=== PATIENT | female | born 1985 | race Caucasian/White ===

== ENCOUNTER → 2023-12-18 07:59 | Day surgery (SDC) | payer OTHER, SELFPAY | LOC: GI 07:59 | PROVIDERS: ATTENDING PHYSICIAN Internal Medicine Gastroenterology | DX: K29.50 Unspecified chronic gastritis without bleeding (principal); B96.81 Helicobacter pylori [H. pylori] as the cause of diseases classified elsewhere; K22.89 Other specified disease of esophagus; K31.89 Other diseases of stomach and duodenum; R10.13 Epigastric pain; R19.7 Diarrhea, unspecified | CPT/HCPCS: 43239; 88305; 87220; 88342 ==

== ENCOUNTER → 2024-06-25 09:09 | Outpatient (REF) | payer OTHER, SELFPAY | LOC: HWRAD 09:09 | PROVIDERS: ATTENDING PHYSICIAN Nurse Practitioner Obstetrics & Gynecology; FAMILY PHYSICIAN Family Medicine | DX: F52.6 Dyspareunia not due to a substance or known physiological condition (principal) | CPT/HCPCS: 76830; 76856 ==

== ENCOUNTER → 2024-08-01 14:29 | Outpatient (REF) | payer OTHER, SELFPAY | LOC: HWRAD 14:29 | PROVIDERS: ATTENDING PHYSICIAN Family Medicine | DX: E04.1 Nontoxic single thyroid nodule (principal) | CPT/HCPCS: 76536 ==

== ENCOUNTER → 2024-08-26 09:30 | Outpatient (REF) | payer OTHER, SELFPAY | LOC: RCS 09:30 | PROVIDERS: ATTENDING PHYSICIAN Family Medicine | DX: R00.0 Tachycardia, unspecified (principal) | CPT/HCPCS: 93225; 93226 ==

== ENCOUNTER 2024-11-29 14:52 | Emergency (ER) | payer OTHER, SELFPAY ==
[2024-11-29 15:01] VITALS: BP 132/87
[2024-11-29 15:20] LABS: % Basophils 0.6 % (0-2); % Eosinophils 0.4 % (0-6); % Immature Granulocytes 0.3 % (0-0.5); % Lymphocytes 21.7 % (20.5-51.1); Absolute Lymphocytes 1.5 10^3/uL (1.2-3.4); Absolute Monocytes 0.3 10^3/uL (0.1-0.6); Absolute Neutrophils 4.9 10^3/uL (1.4-6.5); Hematocrit 39.7 % (37.0-47.0); Hemoglobin 13.2 g/dL (12.0-16.0); Mean Corp Hgb Conc. 33.2 g/dL (33.0-37.0); Mean Corpuscular Hgb 29.2 pg (27.0-31.0); Mean Corpuscular Volume 87.8 fL (81.0-99.0); Nucleated Red Blood Cells % 0 %; Platelet Count 181 10^3/uL (130-400); Red Blood Cell Count 4.52 10^6/uL (4.20-5.40); Red Cell Dist. Width 12.1 % (11.5-14.5); White Blood Cell Count 6.8 10^3/uL (4.8-10.8)
[2024-11-29 15:41] LABS: ALT (SGPT) 18 U/L (0-35); AST (SGOT) 22 U/L (14-36); Albumin 5.3 g/dl (3.5-5.0); Alkaline Phosphatase 44 U/L (38-126); Blood Urea Nitrogen 16 mg/dl (7-17); Calcium 9.2 mg/dl (8.4-10.2); Carbon Dioxide 24 mmol/L (22-30); Chloride 101 mmol/L (98-107); Glucose 105 mg/dl (70-99); Sodium 138 mmol/L (135-145); Total Protein 8.6 g/dl (6.3-8.2); eGFR > 60.00
[2024-11-29 15:43] LABS: Troponin I < 0.012 ng/ml
[2024-11-29 18:36] LABS: TSH 1.51 uIU/ml (0.47-4.68)
[2024-11-29 21:42] VITALS: BP 122/74
--- NOTE | 2024-11-29 22:54 | ED.GENMED ---
History of Present Illness
General
Chief Complaint: Chest Pain
Source: patient, previous radiology exam (Previous Holter monitor July 2024 showing normal sinus rhythm with occasional PACs/PVCs. Abdominal MRI June 2023 showing gallbladder sludge otherwise unremarkable. Performed due to elevated
pancreatic enzymes) and previous hospital records (Upper endoscopy/colonoscopy November 2023.)
Time Seen by Provider: 11/29/24 22:03
Nursing documentation reviewed up to this point in time: agreed with
History of Present Illness
History of Present Illness:
This is a 39-year-old woman who presents to the ED with complaints of sharp substernal chest pain that began around 2 PM today, occasionally radiating to the left chest. No other accompanying symptoms with this sharp chest pain that seem to be
fleeting in nature, no shortness of breath, no cough, no nausea, no diaphoresis, no palpitations.
She does however note a multitude of various symptoms that have been intermittent over the past several weeks to perhaps months including 5-day history of dull epigastric pressure, discomfort and occasional loose stools that occur after meals.
Last night after lying down to bed she developed pounding sensation in her chest feeling that her heart was pounding hard but denies sensation that her heart was beating fast nor skipping beats. Pounding sensation persisted this morning but has
since resolved.
She has also had several week history of intermittent numbness of her left fourth and fifth digits most noted at nighttime and most noted when lying supine.
She has had no neck nor back pain, no headache.
She does admit to significant stress and admits to chronic worry about her health, worries that she will not be around to help care for her 11-year-old daughter. Worries about her mother who resides in [place], being treated for colon cancer.
Patient has been evaluated by GI and underwent unremarkable endoscopy and colonoscopy November 2023.
She underwent Holter monitor July 2024 showing normal sinus rhythm with occasional PACs/PVCs.
She takes no medicines on a daily basis.
She denies recent travel, no leg pain or swelling.
She had been treated with a short course of PPI as per GI perhaps for several months but then discontinued.
No previous treatment for anxiety/stress.
Patient states she called her PCP regarding her chest pain and was hoping to just have an EKG at the office but instead was sent to the ED for further evaluation.
Past History
Past History
ED Past Medical History: GERD (Gastritis) and Psychiatric (Generalized anxiety/stress/worry)
ED Past Surgical History: None
Social History
Tobacco: Smoker (Admits to rare cigarette smoking generally when she is stressed)
Alcohol: None
Drug: None
Personal: (Legally , continue to live together and patient states her is very supportive.)
Living: with family
Employment: Employed
Family History
Family History: Diabetes and Cancer (Colon cancer in mother as well as grandmother)
Phy Exam
Physical Exam
Physical Exam:
GENERAL: 39-year-old woman appears her stated age, awake and alert, pleasant, easily communicative and in no acute distress.
EYE: anicteric
NECK: Supple, nontender, no meningismus, no significant adenopathy.
ENT: oral mucosa is moist. No rhinorrhea.
CARDIAC: Regular rate and rhythm. no murmur. No rub. No palpable chest wall tenderness.
LUNGS: Clear breath sounds bilaterally, no acute respiratory distress, no wheezes/rales/rhonchi
ABDOMEN: Soft, nondistended, mild tenderness epigastric region, no r/g, no cvat. normoactive BS.
NEUROLOGICAL: Alert and oriented x3, no focal neuro deficits. Gait is steady.
SKIN: Warm and dry, normal color, skin intact. No rash.
MUSCULOSKELETAL: No C/C/E. peripheral pulses are full and equal b/l. No palpable tenderness.
PSYCH: Admits to moderate stress, worry about her health. Fair insight and judgment.
Scores
Heart Score for Chest Pain Patients
STEMI patient?: No
History: Slightly or Non-Suspicious
ECG: Normal
Age: </= 45 years
Risk Factors: No Risk Factors
Troponin: </= Normal Limit
Heart Score for Chest Pain Patients: 0
Heart Score Risk: 2.5% MACE over next 6 weeks
Course
Orders/Labs/Results
Orders:
Orders
11/29/24 14:54
Electrocardiogram (*1) Urgent
Reason for Study: Chest Pain
11/29/24 14:55
EKG- Treatment ONCE
11/29/24 15:11
Complete Blood Count/With Diff Urgent
Comprehensive Metabolic Panel Urgent
Lipase Urgent
Comment: ADD ON
TSH Urgent
Comment: ADD ON
Troponin I Urgent
11/29/24 17:22
Add On- LAB Urgent
Tests Added?: TSH
CR Chest - 2 Views Urgent
Comment:
Reason For Exam: CP
11/29/24 22:53
US Abdomen Complete/Upper Urgent
Comment:
Reason For Exam: 5 d hx intermittent upper abd pain, elevated bili
11/29/24 22:54
Crisis Consult Urgent
Reason for Consult: generalized anxiety--worry about health-worsening (she needs OP resources)
11/29/24 22:58
Add On- LAB Urgent
Tests Added?: lipase
Abnormal Lab Results
11/29/24
15:11
MPV 11.0 H fL
(7.4-10.4)
Glucose 105 H mg/dl
(70-99)
Total Bilirubin 2.0 H mg/dl
(0.2-1.3)
Total Protein 8.6 H g/dl
(6.3-8.2)
Albumin 5.3 H g/dl
(3.5-5.0)
Lipase 507 H U/L
(23-300)
11/29/24 15:11
11/29/24 15:11
Vital Signs
Initial and Last Documented VS:
Initial Vital Signs
Temp Pulse Resp BP Pulse Ox
98.2 F 102 20 132/87 97
11/29/24 15:01 11/29/24 15:01 11/29/24 15:01 11/29/24 15:01 11/29/24 15:01
Last Documented Vital Signs
Temp Pulse Resp BP Pulse Ox
98.2 F 67 16 116/74 99
11/29/24 15:01 11/30/24 00:17 11/30/24 00:17 11/30/24 00:17 11/30/24 00:17
MDM/Problems Addressed
Differential Diagnosis Includes:
Concern for GERD/gastritis, biliary colic, arrhythmia, thyroid disorder. ACS, thromboembolism are unlikely.
Labs thus far unremarkable save for mildly elevated bilirubin at 2.0.
Troponin is negative. With intermittent chest discomfort since 2 PM this afternoon, unremarkable EKG and normal troponin. ACS is unlikely.
TSH is normal.
Exam remarkable for mild tenderness epigastric region and with elevated bilirubin must consider biliary colic, pancreatitis.
Will check lipase.
Check abdominal ultrasound. A prior abdominal MRI June 2023 showed gallbladder sludge.
Patient does note moderate ongoing stress/anxiety/worry about her health.
We did discuss potential treatment options for this including outpatient counseling which she is readily agreeable to. Will consult crisis for evaluation and assistance with outpatient resources.
We also discussed option of starting an SSRI such as Lexapro.
She also noted intermittent paresthesia left fourth and fifth digits, intermittent over the past several weeks perhaps more than a month or 2 and only noted at nighttime when lying supine.
No focal neurodeficits.
Currently asymptomatic.
History and exam, I suspect ulnar neuropathy. Nothing to suggest central in origin nor cervical radiculopathy.
MDM/Problems Addressed:
Chest pain, epigastric discomfort, anxiety/worry, left fourth and fifth digit paresthesia.
*Radiology
Radiology exam reviewed: preliminary read by ED provider (Chest x-ray is unremarkable.) and radiology read reviewed (Abdominal ultrasound is unremarkable. Normal gallbladder.)
*Pulse Oximetry
Patient hypoxic: no
*EKG
Interpreted by ED Provider?: Yes
Interpretation: normal
Comparison EKG: no comparison EKG present
Rate: normal
Rhythm: sinus
[place]: normal axis
Interval: normal interval
QRS Pattern: normal QRS
Ischemia: no ischemia
*Critical Care Note
Total Time (30-74mins, 75-104mins- exclusive of procedures): Not Applicable
Update Note
Update Note:
Pt feeling improved after speaking with Benton Richards. Has been given OP resources for counseling.
Lipase mildly elevated
Abd US unremarkable.
Pt has hx of elevated pancreatic enzymes with unremarkable MRI abd save for GB sludge which is not identified today.
Acute gastritis, PUD may be contributing to mild elevation in lipase. overall appears comfortable and exam not consistent with acute pancreatitis.
Recommend bland diet, continue to avoid ETOH
Will start daily protonix
Recommend prompt fu with PCP as well as fu with GI, Dr Do.
Return precautions discussed.
ED Attending Note
-
Portions of this chart may have been created with voice recognition software.� Occasional wrong word or��sound alike� substitutions may have occurred due to the inherent limitations of voice recognition software.
Discharge Plan
Departure
Patient Disposition: Home (Routine Discharge)
Date of Disposition: 11/30/24
Time of Disposition: 01:18
Patient with high blood pressure during this ER visit?: No
Condition: Good
Discharge Problem:
Acute nonspecific chest pain with low risk of coronary artery disease, Acute gastritis, Anxiety, generalized, Elevated lipase
Instructions: Tips to Help You Worry Less, Stress, Rex diet, Gastritis - ED discharge instructions, Chest Pain PCP Follow Up
Prescriptions:
New
pantoprazole [Protonix] 40 mg tablet,delayed release (DR/EC)
40 mg PO DAILY Qty: 60 0RF
No Action
prednisone 10 mg tablet
20 mg PO DAILY 4 Days Qty: 8 0RF
diazepam [Valium] 2 mg tablet
2 mg PO BID PRN (Reason: muscle spasm) Qty: 7 0RF
Referrals:
Cadence Rodriguez MD [Active] - Call in 1-3 days for appt
Kaylee Wood MD [Family Provider] - Call in 1-3 days for appt
Interventions
Interventions:
*Risk Screen - Suicide Last Done: 11/29/24 15:01
*General Assessment Last Done: 11/29/24 15:01
*Neglect/Abuse Screening Last Done: 11/29/24 15:01
ED- Fall Risk Assessment Last Done: 11/29/24 21:41
*ED COVID-19 Vaccine History Last Done: 11/30/24 00:17
ED- Cardiac Assessment Last Done: 11/29/24 21:41
Discharge Date and Time
Print Language: GEORGIAN
[2024-11-29 23:31] LABS: Lipase 507 U/L (23-300)
[2024-11-30 00:17] VITALS: BP 116/74
[2024-11-30] MEDS: PROTONIX 40 MG PO (01:21)
== END 2024-11-30 01:25 | disposition home or self-care (01) ==
LOC: EMR 14:52
PROVIDERS: Emergency Medicine; EMERGENCY PHYSICIAN Emergency Medicine; FAMILY PHYSICIAN Family Medicine
DX: R07.89 Other chest pain (principal); K21.9 Gastro-esophageal reflux disease without esophagitis; F41.9 Anxiety disorder, unspecified; F17.210 Nicotine dependence, cigarettes, uncomplicated; R17 Unspecified jaundice; Z80.0 Family history of malignant neoplasm of digestive organs; Z83.3 Family history of diabetes mellitus; Z87.19 Personal history of other diseases of the digestive system
CPT/HCPCS: 99284; 71046; 76700; 80053; 83690; 84443; 84484; 85025; 93005

== ENCOUNTER 2025-01-03 06:21 | Day surgery (SDC) | payer OTHER, SELFPAY | END 2025-01-03 10:49 | disposition home or self-care (01) | LOC: GI 06:21 | PROVIDERS: ATTENDING PHYSICIAN Internal Medicine Gastroenterology; FAMILY PHYSICIAN Family Medicine | DX: K31.89 Other diseases of stomach and duodenum (principal); R12 Heartburn; K29.50 Unspecified chronic gastritis without bleeding; B96.81 Helicobacter pylori [H. pylori] as the cause of diseases classified elsewhere; K63.9 Disease of intestine, unspecified | CPT/HCPCS: 43239; 88305; 88342 ==

== ENCOUNTER → 2025-07-11 08:55 | Outpatient (REF) | payer OTHER, SELFPAY | LOC: RAD 08:55 | PROVIDERS: ATTENDING PHYSICIAN Internal Medicine Gastroenterology; FAMILY PHYSICIAN Family Medicine | DX: K92.1 Melena (principal); K56.41 Fecal impaction | CPT/HCPCS: 74018 ==

== ENCOUNTER 2025-08-06 06:05 | Day surgery (SDC) | payer OTHER, SELFPAY ==
[2025-08-06 09:59] VITALS: BMI 26.1
[2025-08-06 10:00] VITALS: BP 125/69; BMI 26.1
[2025-08-06 10:32] LABS: HCG, Urine Qualitative Screen Negative
[2025-08-06 12:00] VITALS: BP 105/74
[2025-08-06 12:15] VITALS: BP 99/70
[2025-08-06 12:30] VITALS: BP 112/76
== END 2025-08-06 13:30 | disposition home or self-care (01) ==
LOC: SDS 06:05
PROVIDERS: ATTENDING PHYSICIAN Internal Medicine Gastroenterology
DX: K86.9 Disease of pancreas, unspecified (principal); R74.8 Abnormal levels of other serum enzymes
CPT/HCPCS: 43237; 81025